=== PATIENT | male | born 1970 | race Caucasian/White ===

== ENCOUNTER 2018-01-12 07:46 | Emergency (ER) | payer OTHER ==
[~2018-01-12] VITALS: Ht 180.3 cm; Wt 95.3 kg
[2018-01-12] MEDS ORDERED: ATORVASTATIN CA20 MG ORAL (07:49)
[2018-01-12] MEDS ORDERED: LOSARTAN POTASS25 MG ORAL (07:49)
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
[2018-01-12 08:55] VITALS: BP 151/94
[2018-01-12] MEDS ORDERED: IBUPROFEN600 MG ORAL (09:45)
[2018-01-12] MEDS ORDERED: TRAMADOL HCL50 MG ORAL (09:45)
[2018-01-12] MEDS ORDERED: ROBAXIN500 MG PO (09:45)
[2018-01-12 09:48] VITALS: BP 151/94
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
== END 2018-01-12 09:52 | disposition home or self-care (01) ==
LOC: EDBD 07:46 → EMR 08:16
DX: S13.4XXA Sprain of ligaments of cervical spine, initial encounter (principal); S40.012A Contusion of left shoulder, initial encounter; V43.52XA Car driver injured in collision with other type car in traffic accident, initial encounter; Y92.410 Unspecified street and highway as the place of occurrence of the external cause; I10 Essential (primary) hypertension
CPT/HCPCS: 71045; 72050; 99283